=== PATIENT | female | born 1980 | race Caucasian/White ===

== ENCOUNTER 2021-01-15 11:23 | Emergency (ER) | payer SELFPAY ==
[2021-01-15] MEDS ORDERED: IBUPROFEN800 MG PO (14:23)
== END 2021-01-15 15:21 | disposition home or self-care (01) ==
LOC: FER 11:23
DX: S93.401A Sprain of unspecified ligament of right ankle, initial encounter (principal); S90.122A Contusion of left lesser toe(s) without damage to nail, initial encounter; F17.210 Nicotine dependence, cigarettes, uncomplicated; W19.XXXA Unspecified fall, initial encounter; X50.9XXA Other and unspecified overexertion or strenuous movements or postures, initial encounter
CPT/HCPCS: 73610; 73660